=== PATIENT | male | born 1990 | race Caucasian/White ===

== ENCOUNTER 2018-06-19 03:17 | Emergency (ER) | payer SELFPAY ==
[~2018-06-19] VITALS: Ht 157.5 cm; Wt 103.7 kg
[2018-06-19 03:37] VITALS: Ht 157.5 cm; Wt 103.7 kg
[2018-06-19] MEDS ORDERED: DIAZ5TAB4 PO (06:10)
[2018-06-19] MEDS ORDERED: OLAN10TA7 PO (06:10)
[2018-06-19] MEDS ORDERED: IBUP800T48 PO (06:22)
--- NOTE | 2018-06-19 06:28 | ERD ---
ER Documentation Chief Complaint Chief Complaint states " somebody is stalking me", also c/o stuffy nose HPI 28-year-old male history of schizophrenia, possibly homeless. The patient is n ot forthright with information and/or name. Patient states that for 2-3 days he has had symptoms including mild sore throat, rhinorrhea, body aches and congestion. Cough is dry nonproductive. No actual fever documented. Patient denies any headache rash or neck stiffness. No other complaints. He denies any suicidal or homicidal ideation. ROS All systems reviewed and are negative except as per history of present illness. Medications Home Meds Active Scripts Ibuprofen* (Motrin*) 800 Mg Tab, 800 MG PO Q6H PRN for PAIN AND OR ELEVATED TEMP, #30 TAB Prov:PAZ SALGUERO MD 06/19/18 Reported Medications Diazepam* (Diazepam*) 5 Mg Tablet, 5 MG PO TID, TAB 06/19/18 Olanzapine* (Zyprexa*) 10 Mg Tablet, 10 MG PO DAILY, #30 TAB 06/19/18 Allergies Allergies: Coded Allergies: No Known Drug Allergies (Verified Allergy, Unknown, 06/19/18) PMhx/Soc History of Surgery: Yes (RIGHT TESTICULAR TORSION) Anesthesia Reaction: No Hx Neurological Disorder: No Hx Respiratory Disorders: No Hx Cardiac Disorders: No Hx Psychiatric Problems: Yes (SCHIZOPHRENIA) Hx Miscellaneous Medical Probl: No Hx Alcohol Use: Yes (BEER, DAILY) Hx Substance Use: No Hx Tobacco Use: No Smoking Status: Former smoker Physical Exam Vitals Vital Signs Date Temp Pulse Resp B/P (MAP) Pulse Ox O2 O2 Flow FiO2 Time Delivery Rate 06/19/18 97.8 92 30 141/85 100 Room Air 06:00 (103) 06/19/18 98.2 85 18 150/83 98 03:37 (105) Physical Exam General: Slightly disheveled, no acute distress Head: Normocephalic, atraumatic. Eyes: Pupils equally reactive, EOM intact ENT: Moist mucous membranes, posterior pharynx without swelling or exudates, uvula midline Neck: Supple, no lymphadenopathy Respiratory: Lungs clear bilaterally, no distress Cardiovascular: RRR, no murmurs, rubs, or gallops Abdominal: Soft, non-tender, non-distended, no peritoneal signs : Deferred MSK: No edema, no unilateral swelling, 5/5 strength Neurologic: Alert and oriented, moving all extremities, normal speech, no focal weakness, no cerebellar signs Skin: No rash Psych: Normal mood Results 24 hrs Current Medications Medications Dose Sig/Salas Start Time Status Last (Trade) Ordered Route PRN Stop Time Admin Dose Reason Admin Ibuprofen 800 mg ONCE ONCE 06/19/18 06/19/18 (Motrin) PO 06:30 06:23 06/19/18 06:31 Procedures/MDM The patient's clinical presentation is very consistent with an acute viral syndrome. The patient does not exhibit any clinical signs or symptoms concerning for serious bacterial infection or systemic illness. Based on history and clinical exam findings the patient does not appear to have evidence of pneumonia, strep pharyngitis, urinary tract infection, bacteremia, sepsis, or meningitis. For these reasons I do not believe it is necessary to obtain laboratory testing or diagnostic imaging. I believe it would be appropriate for symptom control, and close outpatient primary care follow-up. Homeless discharged process initiated. Patient is not a danger to himself or others. He has been given food. We discussed follow up with the patient's primary care doctor within 24 to 48 hours as needed. We also discussed return to the emergency room for worsening symptoms or worsening condition. Discharge Medications: Motrin Departure Diagnosis: Primary Impression: Viral syndrome Condition: Stable Patient Instructions: Viral Syndrome (Adult) Referrals: [facility] YOU HAVE RECEIVED A MEDICAL SCREENING EXAM AND THE RESULTS INDICATE THAT YOU DO NOT HAVE A CONDITION THAT REQUIRES URGENT TREATMENT IN THE EMERGENCY DEPARTMENT. FURTHER EVALUATION AND TREATMENT OF YOUR CONDITION CAN WAIT UNTIL YOU ARE SEEN IN YOUR DOCTORS OFFICE WITHIN THE NEXT 1-2 DAYS. IT IS YOUR RESPONSIBILITY TO M ANTONIO AN APPOINTMENT FOR FOLOW-UP CARE. IF YOU HAVE A PRIMARY DOCTOR --you should call your primary doctor and schedule an appointment IF YOU DO NOT HAVE A PRIMARY DOCTOR YOU CAN CALL OUR PHYSICIAN REFERRAL HOTLINE AT IF YOU CAN NOT AFFORD TO SEE A PHYSICIAN YOU CAN CHOSE FROM THE FOLLOWING [facility] [address] [facility]. [facility] [address] [facility] [address] [facility] [address] [facility] [address] [facility]. [facility] [address] [facility]. [facility] YOU HAVE RECEIVED A MEDICAL SCREENING EXAM AND THE RESULTS INDICATE THAT YOU DO NOT HAVE A CONDITION THAT REQUIRES URGENT TREATMENT IN THE EMERGENCY DEPARTMENT. FURTHER EVALUATION AND TREATMENT OF YOUR CONDITION CAN WAIT UNTIL YOU ARE SEEN IN YOUR DOCTORS OFFICE WITHIN THE NEXT 1-2 DAYS. IT IS YOUR RESPONSIBILITY TO MAKE AN APPOINTMENT FOR FOLOW-UP CARE. IF YOU HAVE A PRIMARY DOCTOR --you should call your primary doctor and schedule and appointment IF YOU DO NOT HAVE A PRIMARY DOCTOR YOU CAN CALL OUR PHYSICIAN REFERRAL HOTLINE AT . IF YOU CAN NOT AFFORD TO SEE A PHYSICIAN YOU CAN CHOSE FROM THE FOLLOWING [facility] INSTITUTIONS: [facility] [address] [place] [address] [facility] [address] [place] [address] [facility] + [facility] [address] [place] [address] Additional Instructions: Call your primary care doctor TOMORROW for an appointment during the next 1 WEEK.Tell the alumni secretary that you were referred from this facility.See the doctor sooner or return here if your condition worsens before your appointment time. PAZ SALGUERO MD Jun 19, 2018 06:28
[2018-06-19] MEDS ORDERED: IBUPROFEN 800 MG TAB PO ONE (06:30)
[2018-06-19 11:25] VITALS: BP 134/78; PULSE 78; RESP 16
== END 2018-06-19 11:31 | disposition home or self-care (01) ==
LOC: E/R 03:17
DX: B34.9 Viral infection, unspecified (principal)
CPT/HCPCS: 99282